=== PATIENT | female | born 1960 | race Asian ===

== ENCOUNTER 2017-06-26 09:58 | Emergency (ER) | payer OTHER ==
[2017-06-26 10:10] VITALS: BP 118/90
--- NOTE | 2017-06-26 10:17 | UC ---
Throat Pain/Nasal Guillermo HPI - HPI Summary HPI Summary: Pt presents with ST and cough. She tells me that about 2 weeks ago she had cold- like symptoms consisting of sinus congestion and a dry cough. These seemed to improve, but over the last 3 days has developed a more persistent cough, ST, and mild hoarseness. She has been taking an OTC cough and flu medication with mild relief. Denies fever, chills, SOB, chest pain, abdominal pain, N/V/d/C. - History of Current Complaint Chief Complaint: UCGeneralIllness Stated Complaint: SORE THROAT, AND COUGH Time Seen by Provider: 06/26/17 10:16 Hx Obtained From: Patient Onset/Duration: Gradual Onset Severity: Mild Cough: Nonproductive - Allergies/Home Medications Allergies/Adverse Reactions: Allergies Allergy/AdvReac Type Severity Reaction Status Date / Time No Known Allergies Allergy Verified 06/26/17 10:10 Home Medications: Home Medications Alendronate Sodium [Fosamax-] 1 tab PO WEEKLY 06/26/17 [History Confirmed ] Calcium Carbonate-Cholecalcife [Calcium 500+D 500-200 mg-Unit] 1 tab PO DAILY [History Confirmed 06/26/17] Gjipuvpmsplsx-Yjrkejbrkpr-Kb [Theraflu Cold & Cough 10-20-20 mg] 1 dewey PO BEDTIME 06/26/17 [History Confirmed 06/26/17] PMH/Surg Hx/FS Hx/Imm Hx Previously Healthy: Yes - Surgical History Surgical History: Yes Surgery Procedure, Year, and Place: exploratory lap ovary; appendectomy - Family History Known Family History: Positive: Unknown - Social History Occupation: Employed Full-time Lives: With Family Alcohol Use: Occasionally Substance Use Type: None Smoking Status (MU): Never Smoked Tobacco - Immunization History Most Recent Influenza Vaccination: NOT UTD Review of Systems Constitutional: Negative Skin: Negative Eyes: Negative ENT: Sore Throat Respiratory: Cough Cardiovascular: Negative Gastrointestinal: Negative Neurological: Negative Psychological: Negative All Other Systems Reviewed And Are Negative: Yes Physical Exam Triage Information Reviewed: Yes Appearance: Well-Appearing, Well-Nourished Vital Signs: Initial Vital Signs Temp 98.8 F 06/26/17 10:04 Pulse 80 06/26/17 10:04 Resp 16 06/26/17 10:04 BP 118/90 06/26/17 10:04 Pulse Ox 99 06/26/17 10:04 Vital Signs Reviewed: Yes Eyes: Positive: Conjunctiva Clear. Negative: Conjunctiva Inflamed, Discharge ENT: Positive: Hearing grossly normal, Pharynx normal, Pharyngeal erythema - Mild, TMs normal, Hoarse voice - Mild, Uvula midline. Negative: Nasal congestion, Nasal drainage, TM bulging, TM dull, TM red, Tonsillar swelling, Tonsillar exudate, Muffled voice, Sinus tenderness Neck: Positive: Supple, Nontender, No Lymphadenopathy Respiratory: Positive: Chest non-tender, Lungs clear, Normal breath sounds, No respiratory distress, No accessory muscle use Cardiovascular: Positive: RRR, No Murmur, Pulses Normal Neurological: Positive: Alert Psychological: Positive: Age Appropriate Behavior Skin: Negative: rashes Throat Pain/Nasal Course/Dx - Course Course Of Treatment: POC strep - negative. Suspect viral illness. Advised pt to continue with conservative measures and I will rx for Tessalon for her cough. - Differential Dx/Diagnosis Differential Diagnosis/HQI/PQRI: Laryngitis, Mononucleosis, Otitis Media, Pharyngitis, Sinusitis, Tonsillitis, URI Provider Diagnoses: Laryngitis. Cough. Sore Throat Discharge - Discharge Plan Condition: Stable Disposition: HOME Prescriptions: Benzonatate CAP* [Tessalon 100 MG CAP*] 100 mg PO TID PRN #30 cap PRN Reason: Cough Patient Education Materials: Laryngitis (ED) Referrals: Judith Gaona MD [Primary Care Provider] - Additional Instructions: If you develop a fever, SOB, chest pain, new or worsening symptoms - please call your PCP or go to the ED.
== END 2017-06-26 10:36 | disposition home or self-care (01) ==
LOC: UCEAST 09:58
DX: J04.0 Acute laryngitis (principal); R05 Cough; J02.9 Acute pharyngitis, unspecified
CPT/HCPCS: 87651; 99212; G0463

== ENCOUNTER 2018-03-04 14:26 | Emergency (ER) | payer OTHER ==
[2018-03-04 14:44] VITALS: BP 137/93
--- NOTE | 2018-03-04 14:51 | UC ---
Back Pain HPI - HPI Summary HPI Summary: A 57 y/o female presents to [facility] c/o intermittent right lower back pain reaching 8/10 in severity. As per triage, "thursday was repeatedly twisting and bending over, now has lower back pain on right side". 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 She was actively moving and exerting herself. Initially, she had no issues, however, at one point she started experiencing the right lower back pain. She disregarded the pain, as when she stands in an upright position, the pain is not present and continued with her work at the store through Thursday and Thursday of this week, where again she was exerting herself. She noted that the pain has not gone away since onset and only is present when she stands up from an "angle", such as getting out of a vehicle. She further noted that she has to use her upper body strength in order to stand up. The pain sometimes radiates to her leg and she denies any numbness. No known allergies. On Thursday (2017), she put a Biofreeze on the affected area and took 400 mg of Ibuprofen today, however, nothing has alleviated the symptoms. Patient takes Calcium and medication for her osteoporosis. Patient has not traveled recently, but plans on traveling to [place] soon. - History of Current Complaint Stated Complaint: BACK PAIN Time Seen by Provider: 03/04/18 14:31 Hx Obtained From: Patient Onset/Duration: Sudden Onset, Lasting Days, Still Present Timing: Intermittent - Getting up from an angle Severity Currently: Severe Pain Intensity: 8 Pain Scale Used: 0-10 Numeric Back Pain: Is Discrete @ - Right lower., Radiates To - Sometimes leg. Aggravating Factor(s): Other - Standing up from angle Alleviating Factor(s): Rest, Position Associated Signs And Symptoms: Negative: Fever, Numbness - Allergies/Home Medications Allergies/Adverse Reactions: Allergies Allergy/AdvReac Type Severity Reaction Status Date / Time No Known Allergies Allergy Verified 03/04/18 14:39 PMH/Surg Hx/FS Hx/Imm Hx - Additional Past Medical History Additional PMH: POSITIVE: Osteoporosis. Endocrine History: Diabetes - NEGATIVE Other Cardiovascular History: Heart murmer as child (resolved). Respiratory History: Asthma - NEGATIVE - Surgical History Surgical History: Yes Surgery Procedure, Year, and Place: exploratory lap ovary; appendectomy - Family History Known Family History: Positive: Cardiac Disease Family History: LACERATIONS - Social History Alcohol Use: Occasionally Substance Use Type: None Smoking Status (MU): Never Smoked Tobacco - Immunization History Most Recent Influenza Vaccination: NOT UTD Review of Systems Constitutional: Negative Skin: Negative Eyes: Negative ENT: Negative Respiratory: Negative Cardiovascular: Negative Gastrointestinal: Negative Genitourinary: Negative Motor: Negative Neurovascular: Negative Musculoskeletal: Other: - POSITIVE: Right lower back pain Neurological: Negative Psychological: Negative Is Patient Immunocompromised?: No All Other Systems Reviewed And Are Negative: Yes Physical Exam - Summary Physical Exam Summary: General: well-appearing, no pain distress Skin: warm, color reflects adequate perfusion, dry Head: normal Eyes: EOMI, MAURICIO ENT: normal Neck: supple, nontender Respiratory: CTA, breath sounds present Cardiovascular: RRR Abdomen: soft, nontender Bowel: present Musculoskeletal: strength/ROM intact, tenderness in the right sacroiliac joint. Neurological: sensory/motor intact, A&O x3 Psychological: affect/mood appropriate Triage Information Reviewed: Yes Vital Signs Reviewed: Yes Back Pain Course/Dx - Course Course Of Treatment: Medications reviewed. Allergies noted. BP noted and advised to follow up with PCP. NO URINARY SX. NO NEUROLOGIC DEGICIT. F/U PMD; RECHECK SOONER IF WORSE. - Differential Dx/Diagnosis Provider Diagnoses: LOW BACK PAIN. RIGHT SACROILIITIS Discharge - Sign-Out/Discharge Documenting (check all that apply): Patient Departure - DISCHARGE All imaging exams completed and their final reports reviewed: No Studies - Discharge Plan Condition: Stable Disposition: HOME Prescriptions: Lidocaine PATCH 5%* [Lidoderm 5% Patch*] 1 patch TRANSDERM DAILY #15 patch Patient Education Materials: Acute Low Back Pain (ED), Sacroiliitis (ED), Lower Back Exercises (ED) Referrals: Judith Gaona MD [Primary Care Provider] - Additional Instructions: FOLLOW UP WITH YOUR DOCTOR IF NOT COMPLETELY IMPROVED. TAKE IBUPROFEN 600MG THREE TIMES A DAY WITH FOOD. GET RECHECKED FOR ANY WORSENING OF YOUR CONDITION; PAIN, WEAKNESS, NUMBNESS, DIFFICULTY CONTROLLING BOWEL OR BLADDER OR QUESTIONS OR CONCERNS. YOUR BLOOD PRESSURE WAS ELEVATED DURING TODAY'S VISIT; PLEASE FOLLOW UP WITH YOUR PRIMARY CARE PROVIDER WITHIN A WEEK FOR FURTHER EVALUATION. - Billing Disposition and Condition Condition: STABLE Disposition: Home - Attestation Statements Document Initiated by Scribe: Yes Documenting Scribe: Sergey Naik Provider For Whom Siomaraibe is Documenting (Include Credential): Ángel Peters MD Scribe Attestation: Sergey Gonzalez, scribed for Ángel Peters MD on 03/04/18 at 1621. Scribe Documentation Reviewed: Yes Provider Attestation: The documentation as recorded by the Sergey pablo accurately reflects the service I personally performed and the decisions made by me, Ángel Peters MD
== END 2018-03-04 14:54 | disposition home or self-care (01) ==
LOC: UCEAST 14:26
DX: M54.5 Low back pain (principal); M46.1 Sacroiliitis, not elsewhere classified; M79.604 Pain in right leg; M81.0 Age-related osteoporosis without current pathological fracture; Z79.899 Other long term (current) drug therapy
CPT/HCPCS: 99212; G0463

== ENCOUNTER 2018-12-29 19:24 | Emergency (ER) | payer OTHER ==
[2018-12-29 19:35] VITALS: BP 127/93
--- NOTE | 2018-12-29 19:52 | UC ---
Throat Pain/Nasal Guillermo HPI - HPI Summary HPI Summary: 58-year-old female presents with onset of sore throat yesterday. 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 Denies fever, chills, nasal congestion, runny nose, ear pain, or cough. - History of Current Complaint Chief Complaint: UCRespiratory Stated Complaint: SORE THROAT Time Seen by Provider: 12/29/18 19:38 Hx Obtained From: Patient Pain Intensity: 2 - Allergies/Home Medications Allergies/Adverse Reactions: Allergies Allergy/AdvReac Type Severity Reaction Status Date / Time No Known Allergies Allergy Verified 12/29/18 19:35 PMH/Surg Hx/FS Hx/Imm Hx Previously Healthy: Yes - Surgical History Surgical History: Yes Surgery Procedure, Year, and Place: exploratory lap ovary; appendectomy - Family History Known Family History: Positive: Cardiac Disease - Social History Occupation: Works From/At Home Lives: With Family Alcohol Use: Rare Substance Use Type: None Smoking Status (MU): Never Smoked Tobacco - Immunization History Most Recent Influenza Vaccination: NOT UTD Review of Systems All Other Systems Reviewed And Are Negative: Yes Constitutional: Negative: Fever, Chills Skin: Negative: Rash Eyes: Negative: Drainage, Eye Redness ENT: Positive: Sore Throat. Negative: Ear Ache, Nasal Discharge, Sinus Congestion, Sinus Pain/Tenderness Respiratory: Negative: Cough Cardiovascular: Positive: Negative Gastrointestinal: Positive: Negative Genitourinary: Positive: Negative Musculoskeletal: Positive: Negative Neurological: Positive: Negative Is Patient Immunocompromised?: No Physical Exam - Summary Physical Exam Summary: GENERAL APPEARANCE: Well developed, well nourished, alert and cooperative, and appears to be in no acute distress. EYES: Conjunctiva clear. No drainage. EARS: External auditory canals and tympanic membranes clear, hearing grossly intact. NOSE: No nasal discharge. THROAT: Pharyngeal erythema. No tonsilar inflammation, swelling, exudate, or lesions. Uvula midline. NECK: Neck supple, non-tender without lymphadenopathy. CARDIAC: Normal S1 and S2. No S3, S4 or murmurs. Rhythm is regular. There is no peripheral edema, cyanosis or pallor. Extremities are warm and well perfused. Capillary refill is less than 2 seconds. Peripheral pulses intact. LUNGS: Clear to auscultation without rales, rhonchi, wheezing or diminished breath sounds. ABDOMEN: Positive bowel sounds. Soft, nondistended, nontender. No guarding or rebound. No masses or hepatosplenomegally. MUSKULOSKELETAL: ROM intact to all extremities. No joint erythema or tenderness. Normal muscular development. Normal gait. SKIN: Skin normal color, texture and turgor with no lesions or eruptions. Triage Information Reviewed: Yes Vital Signs: Initial Vital Signs Temp 99 F 12/29/18 19:30 Pulse 97 12/29/18 19:30 Resp 12 12/29/18 19:30 BP 127/93 12/29/18 19:30 Pulse Ox 98 12/29/18 19:30 Vital Signs Reviewed: Yes Throat Pain/Nasal Course/Dx - Course Course Of Treatment: 58-year-old female presents with onset of sore throat yesterday. 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 Denies fever, chills, nasal congestion, runny nose, ear pain, or cough. Afebrile. Vital signs stable. Patient had pharyngeal erythema without tonsillar swelling, exudate, or cervical lymphadenopathy and otherwise unremarkable exam. Rapid strep test was negative. Recommending symptomatic treatment for a viral pharyngitis. She is to follow-up with her primary care provider in 5-7 days if symptoms do not improve. Anticipatory guidance and warning symptoms were reviewed with the patient. Verbalizes understanding and agrees with plan of care. - Differential Dx/Diagnosis Differential Diagnosis/HQI/PQRI: Mononucleosis, Pharyngitis, Tonsillitis, URI Provider Diagnosis: Viral pharyngitis Discharge - Sign-Out/Discharge Documenting (check all that apply): Patient Departure All imaging exams completed and their final reports reviewed: No Studies - Discharge Plan Condition: Stable Disposition: HOME Patient Education Materials: Pharyngitis (ED) Referrals: Judith Gaona MD [Primary Care Provider] - 5 Days Additional Instructions: Your rapid strep test in the clinic today was negative. Your symptoms are likely from a viral infection. Viral infections do not respond to antibiotics and are limited to the treatment of symptoms. Viral infections typically run their course in 7-10 days. Drink plenty of fluids to avoid dehydration especially if you are running any fever. Use salt water gargles several times a day. Take over the counter acetaminophen (Tylenol) or ibuprofen (Advil, Motrin) according to directions as needed for pain or fever. You may also use Chloraseptic spray or Cepacol lonzenges according to directions which contain a numbing medication and can provide some temporary relief from your sore throat. Return here or follow up with your primary care provider in 7 days if symptoms persist. Seek immediate medical attention in the emergency room if you have fever greater than 100.5 F despite taking acetaminophen or ibuprofen, are unable to swallow or develop drooling, are unable to open your mouth fully, are unable to eat or drink, have pain that is not relieved with over the counter pain medication, or have any difficulty breathing. - Billing Disposition and Condition Condition: STABLE Disposition: Home
== END 2018-12-29 20:01 | disposition home or self-care (01) ==
LOC: UCEAST 19:24
DX: J02.8 Acute pharyngitis due to other specified organisms (principal)
CPT/HCPCS: 87651; 99211; G0463

== ENCOUNTER 2019-01-17 17:13 | Emergency (ER) | payer OTHER ==
[2019-01-17 17:23] VITALS: BP 136/94
--- NOTE | 2019-01-17 17:26 | UC ---
Throat Pain/Nasal Guillermo HPI - HPI Summary HPI Summary: 58 yo female presents with sore throat. She tells me that about 2-3 weeks ago she developed a sore throat and that many of her coworkers were dx'd with strep. She was evaluated here around that time and strep test was negative and she was treated for a viral illness. She has been using OTC throat lozenges with little relief. About a week ago she developed a dry cough that has since subsided, but her sore throat is still persisting and seems worse than initially. She is eating, drinking, and tolerating po well. Denies fever, chills , sinus symptoms, SOB, chest pain, rash, n/v. - History of Current Complaint Stated Complaint: THROAT PAIN Time Seen by Provider: 01/17/19 17:18 Onset/Duration: Gradual Onset Severity: Moderate Pain Intensity: 5 Pain Scale Used: 0-10 Numeric - Allergies/Home Medications Allergies/Adverse Reactions: Allergies Allergy/AdvReac Type Severity Reaction Status Date / Time No Known Allergies Allergy Verified 01/17/19 17:23 Home Medications: Home Medications Menthol [Ricola] 1 lozenge PO DAILY PRN 01/17/19 [History Confirmed 01/17/19] PMH/Surg Hx/FS Hx/Imm Hx - Additional Past Medical History Additional PMH: None - Surgical History Surgical History: Yes Surgery Procedure, Year, and Place: exploratory lap ovary; appendectomy - Family History Known Family History: Positive: Cardiac Disease Family History: LACERATIONS - Social History Lives: With Family Alcohol Use: Rare Substance Use Type: None Smoking Status (MU): Never Smoked Tobacco - Immunization History Most Recent Influenza Vaccination: NOT UTD Review of Systems All Other Systems Reviewed And Are Negative: Yes Constitutional: Positive: Negative Skin: Positive: Negative Eyes: Positive: Negative ENT: Positive: Sore Throat Respiratory: Positive: Cough Cardiovascular: Positive: Negative Gastrointestinal: Positive: Negative Neurovascular: Positive: Negative Neurological: Positive: Negative Psychological: Positive: Negative Physical Exam - Summary Physical Exam Summary: GENERAL: NAD. WDWN. No pain distress. SKIN: No rashes, sores, lesions, or open wounds. HEENT: Head: AT/NC Eyes: EOM intact. Conjunctiva clear without inflammation or discharge. Ears: Hearing grossly normal. TMs intact, no bulging, erythema, or edema. Nose: Nasal mucosa pink and moist. NTTP maxillary and frontal sinus. Throat: Posterior oropharynx with mild erythema. Without exudates or tonsillar enlargement. Uvula midline. NECK: Supple. Nontender mild tonsillar LAD b/l CHEST: CTAB. No r/r/w. No accessory muscle use. Breathing comfortably and in no distress. CV: RRR. Without m/r/g. Pulses intact. Cap refill <2seconds NEURO: Alert. PSYCH: Age appropriate behavior. Triage Information Reviewed: Yes Vital Signs: Vital Signs: Temp Pulse Resp BP Pulse Ox 98 F 75 16 136/94 97 01/17/19 17:19 01/17/19 17:19 01/17/19 17:19 01/17/19 17:19 01/17/19 17:19 Vital Signs Reviewed: Yes Throat Pain/Nasal Course/Dx - Course Course Of Treatment: Suspect pharyngitis. Given her prolonged symptoms with failure of OTC conservative management, will rx for antibiotics at this time. - Differential Dx/Diagnosis Provider Diagnosis: Pharyngitis Discharge - Sign-Out/Discharge Documenting (check all that apply): Patient Departure All imaging exams completed and their final reports reviewed: No Studies - Discharge Plan Condition: Stable Disposition: HOME Prescriptions: Amoxicillin PO (*) [Amoxicillin 875 MG (*)] 875 mg PO BID #14 tab Patient Education Materials: Pharyngitis (ED) Referrals: Judith Gaona MD [Primary Care Provider] - Additional Instructions: If you develop a fever, shortness of breath, chest pain, new or worsening symptoms - please call your PCP or go to the ED immediately. Your blood pressure was slightly elevated at todays visit. Please see your primary provider within 4 weeks for recheck and re-evaluation. - Billing Disposition and Condition Condition: STABLE Disposition: Home - Attestation Statements Provider Attestation: Per institutional requirements, I have reviewed the chart, however, I was not consulted specifically or made aware of this patient by the midlevel provider. I did not personally evaluate, interact with , or disposition this patient.
== END 2019-01-17 17:47 | disposition home or self-care (01) ==
LOC: UCEAST 17:13
DX: J02.9 Acute pharyngitis, unspecified (principal)
CPT/HCPCS: 87651; 99212; G0463